=== PATIENT | male | born 1980 | race Caucasian/White ===

== ENCOUNTER → 2023-12-13 06:41 | Day surgery (SDC) | payer OTHER, SELFPAY | LOC: GI 06:41 | PROVIDERS: ATTENDING PHYSICIAN Internal Medicine Gastroenterology | DX: Z12.11 Encounter for screening for malignant neoplasm of colon (principal); K64.8 Other hemorrhoids; D12.2 Benign neoplasm of ascending colon | CPT/HCPCS: 45385; 88305 ==

== ENCOUNTER 2024-05-01 13:48 | Emergency (ER) | payer OTHER, SELFPAY ==
[2024-05-01 14:00] VITALS: BP 132/85
--- NOTE | 2024-05-01 14:04 | ED.GENMED ---
History of Present Illness
General
Chief Complaint: Skin Surface Trauma
Source: patient
Exam Limitations: none
Time Seen by Provider: 05/01/24 14:03
Nursing documentation reviewed up to this point in time: agreed with
History of Present Illness
History of Present Illness:
This is a 43 y/o male with a PMH of hyperlipidemia presenting today with finger tip injury from onion slicer. Patient states that he actually cut his finger while cutting onions and noticed a small piece of skin come off. Patient denies any pain
in his finger he just feels some throbbing. Patient was concerned because despite multiple bandages, he could not get the bleeding to stop and so he presented to emergency department today. Patient denies any other injuries. Patient denies any
falls. Patient able to move his finger without any difficulty or significant pain. Patient is unsure when his last tetanus was, but does not think it was within the last 5 years. Patient does not take any anticoagulant medication.
Past History
Past History
ED Past Medical History: Other
ED Past Surgical History: None
Social History
Tobacco: Non-smoker
Alcohol: None
Drug: None
Personal:
Living: with family
Employment: Employed
Family History
Family History: Diabetes and Other (mother with stomach cancer)
Review of Systems
Review of Systems
All Other Systems: ROS reviewed and negative except as documented in HPI and ROS
Phy Exam
Physical Exam
Physical Exam:
General: Patient is well appearing and in no acute distress; non-toxic
Skin: Warm and dry, 0.5 cm actively bleeding complete skin tear on the tip of the right third finger, no nailbed involvement, no hematoma. Brisk capillary refill.
Head: Normocephalic, atraumatic
Eyes: Sclera non-icteric. EOMs intact.
Cardiac: Regular rate
Pulm: Normal respiratory effort.
Musculoskeletal: No bony tenderness to palpation of phalanges/metacarpals. FDS and FDP testing intact with 5/5 strength.
Neuro: CN II-XII intact, no focal neurologic deficits. Sensation intact to light touch in bilateral upper extremities.
Psychiatric: Appropriate mood and affect.
Course
Orders/Labs/Results
Orders:
Orders
05/01/24 14:13
Tetanus/Diphth/Acelpertussis [Adacel] 0.5 ml IM .ONCE ONE
Vital Signs
Initial and Last Documented VS:
Initial Vital Signs
Temp Pulse Resp BP Pulse Ox
98.0 F 60 16 132/85 98
05/01/24 14:00 05/01/24 14:00 05/01/24 14:00 05/01/24 14:00 05/01/24 14:00
Last Documented Vital Signs
Temp Pulse Resp BP Pulse Ox
98.0 F 60 16 132/85 98
05/01/24 14:00 05/01/24 14:00 05/01/24 14:00 05/01/24 14:00 05/01/24 14:00
MDM/Problems Addressed
Differential Diagnosis Includes:
ddx include abrasion, laceration, neurovascular injury
MDM/Problems Addressed:
Finger injury:
This is a 43 y/o male with a PMH of hyperlipidemia presenting today with finger tip injury from onion slicer. Patient states that he actually cut his finger while cutting onions and noticed a small piece of skin come off. Patient denies any pain
in his finger, he just feels some throbbing. On exam, patient is very well appearing and has a 0.5 cm total skin tear on tip of his right 3rd finger with no nailbed involvement/tendon involvement. Patient is no bony tenderness, no indication for
imaging at time. Considering patient's persistent bleeding, a small piece of Surgifoam absorbable dressing was applied to help maintain homeostasis. Wound was then dressed with nonhearing pads and Kerlix wrapping bulky dressing. Hemostasis
achieved. Patient stable for discharge. Return precautions discussed.
Chronic conditions affecting care:
hyperlipidemia
Acute Exacerbation and/or Progression of Chronic Illness:
n/a
*Pulse Oximetry
Patient hypoxic: no
*Critical Care Note
Total Time (30-74mins, 75-104mins- exclusive of procedures): Not Applicable
Data Reviewed
Review of Other/Old Records Reveals: Records (Reviewed previous ER physician documentation from 04/27/2013)
Source: patient and records
Further Testing Considered But Not Given:
Stitches or glue for repair but no skin to approximate, very superficial lesion
Patient Management
Social determinants of health affecting care: Strong social support
Escalation/DeEscalation of care consider admission/obs:
Reviewed case with my attending Dr. Ramirez, patient stable for discharge.
ED Attending Note
-
Portions of this chart may have been created with voice recognition software.� Occasional wrong word or��sound alike� substitutions may have occurred due to the inherent limitations of voice recognition software.
Discharge Plan
Departure
Patient Disposition: Home (Routine Discharge)
Date of Disposition: 05/01/24
Time of Disposition: 14:25
Patient with high blood pressure during this ER visit?: Yes
Condition: Good
Discharge Problem:
Avulsion of skin of finger
Instructions: Wound Care (DC), BLOOD PRESSURE
Prescriptions:
No Action
aspirin [Ho Low Dose Aspirin] 81 MG tablet,delayed release (DR/EC)
81 mg PO DAILY
lovastatin 20 MG tablet
20 mg PO HS
docosahexaenoic acid-epa 1 CAP capsule
1 cap PO DAILY
cephalexin 500 MG capsule
500 mg PO QID Qty: 40 0RF
Activity Restrictions/Additional Instructions:
You can change the dressing on your finger once daily. Please keep the dressing on for today, you can remove it tomorrow. Please keep the finger dry for today. You can wash the wound with mild soap and water.
Please return emergency department should you develop purulent drainage from your wound, fevers or chills, redness extending around the wound, or any other signs or symptoms concerning to you.
Interventions
Interventions:
*Nursing Disposition Last Done: 05/01/24 14:31
ED-Skin Assessment Last Done: 05/01/24 14:31
Discharge Date and Time
Discharge Date/Time: 05/01/24 14:43
Print Language: TU[place]
[2024-05-01] MEDS: ADACEL 0.5 ML IM (14:29)
== END 2024-05-01 14:43 | disposition home or self-care (01) ==
LOC: EMR 13:48
PROVIDERS: EMERGENCY PHYSICIAN Emergency Medicine; FAMILY PHYSICIAN Family Medicine
DX: S61.219A Laceration without foreign body of unspecified finger without damage to nail, initial encounter (principal); W45.8XXA Other foreign body or object entering through skin, initial encounter; Z23 Encounter for immunization; E78.5 Hyperlipidemia, unspecified; Z83.3 Family history of diabetes mellitus
CPT/HCPCS: 99282; 90471; 90715